=== PATIENT | female | born 1940 | race Hispanic/Latino ===

== ENCOUNTER 2016-09-27 14:33 | Inpatient (IN) | payer MEDICARE ==
[2016-09-27 14:33] VITALS: BMI 31.2
[2016-09-27] MEDS ORDERED: Morphine 2 mg/ml ISec IVP STA (15:23)
--- NOTE | 2016-09-27 15:40 | ED PDOC ---
Arrival/HPI - General Chief Complaint: Hip Pain Time Seen by Provider: 09/27/16 14:50 Historian: Patient - History of Present Illness Narrative History of Present Illness (Text): 09/27/16 15:40 76 year old female presents to the emergency department with left elbow and left hip pain after mechanical fall prior to arrival. Patient states she tripped over the corner of a rug and landed on her left elbow and hip. Denies head trauma or loss of consciousness. Denies symptoms prior to fall. Denies headache, shortness of breath, chest pain, or other symptoms. Time/Duration: Prior to Arrival Symptom Onset: Sudden Symptom Course: Unchanged Modifying Factors (Text): None Associated Symptoms (Text): None Past Medical History - Provider Review Nursing Documentation Reviewed: Yes - Cardiac Hx Hypertension: Yes Hx Pacemaker: No - Pulmonary Hx Respiratory Disorders: No - Neurological Hx Neurological Disorder: No Hx Paralysis: No - HEENT Hx HEENT Disorder: No - Renal Hx Renal Disorder: No - Endocrine/Metabolic Hx Endocrine Disorders: No - Hematological/Oncological Hx Blood Disorders: No Hx Blood Transfusions: No Hx Blood Transfusion Reaction: No - Integumentary Hx Dermatological Disorder: No - Musculoskeletal/Rheumatological Hx Musculoskeletal Disorders: No - Genitourinary/Gynecological Hx Genitourinary Disorders: No - Psychiatric Hx Anxiety: Yes Hx Emotional Abuse: No Hx Physical Abuse: No Hx Substance Use: No - Anesthesia Hx Anesthesia Reactions: No Hx Malignant Hyperthermia: No - Suicidal Assessment Feels Threatened In Home Enviroment: No Family/Social History - Physician Review Nursing Documentation Reviewed: Yes Family/Social History: Unknown Family HX Smoking Status: Never Smoked Hx Alcohol Use: No Hx Substance Use: No Allergies/Home Meds Allergies/Adverse Reactions: Allergies acetaminophen [From Percocet] Adverse Reaction (Intermediate, Verified 09/27/16 14:46) PALPITATIONS codeine Adverse Reaction (Intermediate, Verified 09/27/16 14:46) PALPITATIONS epinephrine Adverse Reaction (Intermediate, Verified 09/27/16 14:46) PALPITATIONS oxycodone HCl [From Percocet] Adverse Reaction (Intermediate, Verified 09/27/16 14:46) PALPITATIONS Home Medications: Home Meds Medication Instructions Recorded Confirmed Aspirin [Ecotrin] 81 mg PO DAILY 01/06/16 09/27/16 Furosemide [Lasix] 40 mg PO QAM 01/06/16 03/02/16 PARoxetine [Paxil] 10 mg PO QAM 01/06/16 09/27/16 amLODIPine [Norvasc] 10 mg PO BID 01/06/16 09/27/16 Rosuvastatin Calcium [Crestor] 5 mg PO DAILY 09/27/16 09/27/16 Review of Systems - Physician Review All systems were reviewed & negative as marked: Yes - Review of Systems Respiratory: absent: SOB Cardiovascular: absent: Chest Pain Musculoskeletal: Other (Left elbow and left hip pain) Neurological: absent: Dizziness Physical Exam Vital Signs Reviewed: Yes Vital Signs Temp Pulse Resp BP Pulse Ox 09/27/16 18:15 61 18 145/71 97 09/27/16 17:00 65 18 148/79 97 09/27/16 15:00 97.8 F 68 18 153/80 H 97 Temperature: Afebrile Blood Pressure: Normal Pulse: Regular Respiratory Rate: Normal Appearance: Positive for: Well-Appearing, Non-Toxic, Uncomfortable Pain Distress: Moderate Mental Status: Positive for: Alert and Oriented X 3 - Systems Exam Head: Present: Atraumatic, Normocephalic Pupils: Present: PERRL Extroacular Muscles: Present: EOMI Conjunctiva: Present: Normal Mouth: Present: Moist Mucous Membranes Neck: Present: Normal Range of Motion Respiratory/Chest: Present: Clear to Auscultation, Good Air Exchange. No: Respiratory Distress, Accessory Muscle Use Cardiovascular: Present: Regular Rate and Rhythm, Normal S1, S2. No: Murmurs Abdomen: Present: Normal Bowel Sounds. No: Tenderness, Distention, Peritoneal Signs Back: Present: Normal Inspection Upper Extremity: Present: Normal ROM, Other (Abrasion to the left elbow). No: Cyanosis, Edema, Tenderness Lower Extremity: Present: NORMAL PULSES, Capillary Refill < 2 s, Other (Point tenderness to lateral aspect of left hip. Left leg shortened and rotated. Good pulses. ). No: Edema Neurological: Present: GCS=15, CN II-XII Intact, Speech Normal Skin: Present: Warm, Dry, Normal Color. No: Rashes Psychiatric: Present: Alert, Oriented x 3, Normal Insight, Normal Concentration Medical Decision Making ED Course and Treatment: Impression: 76 year old female presents to the emergency department with left elbow and left hip pain after mechanical fall prior to arrival. Differential Diagnosis included but are not limited to: Fracture vs sprain Plan: -- XR left elbow, XR left hip -- Morphine -- Labs -- Reassess and disposition Progress Notes: 09/27/16 18:[address] Ascencio covering for Dr. Hwang, requesting Dr. Mckenzie for orthopedics. Will admit to Dr. Negron with Dr. Mckenzie for orthopedics. Dr. Stanley is covering for Dr. Mckenzie. Multiple calls were made and we were unable to reach Dr. Stanley. Spoke with Dr. Ascencio who is aware. - Lab Interpretations Lab Results: 09/27/16 16:00 09/27/16 16:00 Lab Results 09/27/16 17:20: Blood Type Confirm O POSITIVE 09/27/16 16:00: WBC 13.6 H, RBC 4.88, Hgb 14.8, Hct 43.5, MCV 89.1, MCH 30.3, MCHC 34.0, RDW 13.4, Plt Count 270, MPV 9.9, Gran % 81.7 H, Lymph % (Auto) 12.3 L, Harris % (Auto) 5.1, Eos % (Auto) 0.5 L, Baso % (Auto) 0.4, Gran # 11.12 H, Lymph # 1.7, Harris # 0.7 H, Eos # 0.1, Baso # 0.06, PT 11.4, INR 1.06, APTT 25.0 , Sodium 139, Potassium 3.9, Chloride 102, Carbon Dioxide 26, Anion Gap 15, BUN 17, Creatinine 0.7, Est GFR ( Amer) > 60, Est GFR (Non-Af Amer) > 60, Random Glucose 125 H, Calcium 10.1, Total Bilirubin 0.7, AST 37, ALT 38, Alkaline Phosphatase 98, Total Protein 6.8, Albumin 4.1, Globulin 2.7, Albumin/ Globulin Ratio 1.5, Blood Type O POSITIVE, Antibody Screen Negative, BBK History Checked No verified bt - RAD Interpretation Radiology Orders: 09/27/16 15:23 ELBOW LEFT 3 VIEWS ROUTINE [RAD] Stat HIP MIN 2V W/ PELVIS LT [RAD] Stat 09/27/16 18:01 CHEST PORTABLE [RAD] Stat - Medication Orders Current Medication Orders: Amlodipine Besylate (Norvasc) 10 mg PO BID [facility] Last Admin: 09/27/16 19:30 Dose: 10 MG MAR Pulse and Blood Pressure Document 09/27/16 19:30 SD (Rec: 09/27/16 19:30 SD [id number]) Pulse Pulse Rate (60-90) 75 Blood Pressure Blood Pressure (100/60-150/90) 145/70 Heparin Sodium (Porcine) (Heparin) 5,000 units SC Q12 [facility] PRN Reason: Protocol Sodium Chloride (Sodium Chloride 0.45%) 1,000 mls @ 80 mls/hr IV .[id number] [facility] Last Admin: 09/27/16 19:29 Dose: 80 MLS/HR eMAR Start Stop Document 09/27/16 19:29 SD (Rec: 09/27/16 19:29 SD [id number]) Intravenous Solution Start Date 09/27/16 Start Time 19:29 Morphine Sulfate (Morphine) 2 mg IM Q4H PRN PRN Reason: Pain, moderate (4-7) Paroxetine HCl (Paxil) 10 mg PO DAILY [facility] Discontinued Medications Hydromorphone HCl (Dilaudid) 1 mg IVP STAT STA Stop: 09/27/16 17:27 Last Admin: 09/27/16 17:43 Dose: 1 MG IVP Administration Document 09/27/16 17:43 EQ (Rec: 09/27/16 17:43 EQ [facility] [id number]) Charges for Administration # of IVP Administrations 1 Morphine Sulfate (Morphine) 2 mg IVP STAT STA Stop: 09/27/16 15:24 Last Admin: 09/27/16 16:00 Dose: 2 MG MAR Pain Assessment Document 09/27/16 16:00 EQ (Rec: 09/27/16 16:18 EQ [facility] [id number]) Pain Reassessment Is this a pain reassessment? No Sleep Is patient sleeping during reassessment? No Presence of Pain Presence of Pain Yes Pain Scale Used Pain Scale Used Numeric Location Left, Right or Bilateral Left Pain Location Body Site Hip Description Description Constant Intensity of Pain at present 10 IVP Administration Document 09/27/16 16:00 EQ (Rec: 09/27/16 16:18 EQ [facility] [id number]) Charges for Administration # of IVP Administrations 1 Morphine Sulfate (Morphine) 4 mg IVP STAT STA Stop: 09/27/16 16:22 Last Admin: 09/27/16 16:39 Dose: 4 MG MAR Pain Assessment Document 09/27/16 16:39 EQ (Rec: 09/27/16 16:39 EQ [facility] [id number]) Pain Reassessment Is this a pain reassessment? Yes Sleep Is patient sleeping during reassessment? Yes Pain Scale Used Pain Scale Used Numeric Location Left, Right or Bilateral Left Pain Location Body Site Hip Description Description Constant Intensity of Pain at present 8 IVP Administration Document 09/27/16 16:39 EQ (Rec: 09/27/16 16:39 EQ [facility] [id number]) Charges for Administration # of IVP Administrations 1 Morphine Sulfate (Morphine) Confirm Administered Dose 4 mg .ROUTE .STK-MED ONE Stop: 09/27/16 16:24 Last Admin: 09/27/16 16:38 Dose: - Scribe Statement The provider has reviewed the documentation as recorded by the Bhavik Hathaway Provider Scribe Attestation: All medical record entries made by the Sonibedmundo were at my direction and personally dictated by me. I have reviewed the chart and agree that the record accurately reflects my personal performance of the history, physical exam, medical decision making, and the department course for this patient. I have also personally directed, reviewed, and agree with the discharge instructions and disposition. Disposition/Present on Arrival - Present on Arrival Any Indicators Present on Arrival: No History of DVT/PE: No History of Uncontrolled Diabetes: No Urinary Catheter: No History of Decub. Ulcer: No History Surgical Site Infection Following: None - Disposition Have Diagnosis and Disposition been Completed?: Yes Diagnosis: Fracture of left hip Disposition: HOSPITALIZED Disposition Time: 18:00 Patient Plan: Admission Condition: STABLE
[2016-09-27 16:08] LABS: ADD MANUAL DIFF? NO
[2016-09-27 16:14] LABS: BASO # 0.06 K/mm3 (0.0-2.0); BASO % 0.4 % (0.0-3.0); EOS # 0.1 (0.0-0.7); EOS % 0.5 % (1.5-5.0); GRAN # 11.12 (1.4-6.5); GRAN % 81.7 % (50.0-68.0); HEMATOCRIT 43.5 % (36.0-48.0); LYMPH # 1.7 (1.2-3.4); LYMPH % 12.3 % (22.0-35.0); MEAN CELL VOLUME 89.1 fL (80.0-105.0); MEAN CORPUSCULAR HEMOGLOBIN 30.3 pg (25.0-35.0); MEAN PLATELET VOLUME 9.9 fl (7.0-11.0); MONO # 0.7 (0.1-0.6); MONO % 5.1 % (1.0-6.0); PLATELET COUNT 270 10^3/uL (120.0-450.0); RED CELL DISTRIBUTION WIDTH 13.4 % (11.5-14.5); WHITE BLOOD COUNT 13.6 10^3/ul (4.5-11.0)
[2016-09-27] MEDS ORDERED: Morphine 4 mg/ml ISec IVP STA (16:21)
[2016-09-27] MEDS ORDERED: Morphine 4 mg/ml ISec ONE (16:23)
[2016-09-27 16:38] LABS: ALB/GLOB RATIO 1.5 (1.1-1.8); ALKALINE PHOSPHATASE 98 U/L (38-133); ALT/SGPT 38 U/L (7-56); AST/SGOT 37 U/L (15-39); BILIRUBIN,TOTAL 0.7 mg/dL (0.2-1.3); BLOOD UREA NITROGEN 17 mg/dL (7-21); CALCIUM 10.1 mg/dL (8.4-10.5); CARBON DIOXIDE 26 mmol/L (21-33); CHLORIDE 102 mmol/L (98-107); GFR AFRICAN-AMERICAN > 60; GLUCOSE,RANDOM 125 mg/dL (70-110); POTASSIUM 3.9 mmol/L (3.6-5.0); SODIUM 139 mmol/L (132-148); TOTAL PROTEIN 6.8 g/dL (5.8-8.3)
[2016-09-27 16:39] LABS: INR 1.06 (0.93-1.08)
--- NOTE | 2016-09-27 17:20 | RAD ---
Left hip with pelvis radiographs Comparison: None available Indication: Rule out fracture Findings: Comminuted left intratrochanteric fracture deformity. Soft tissue swelling. No evidence of radiopaque foreign body. No evidence of dislocation. Cease demineralization. Degenerative changes. Impression: Comminuted left intertrochanteric fracture deformity. Soft tissue swelling.
--- NOTE | 2016-09-27 17:22 | RAD ---
PROCEDURE: Radiographs of the left elbow. HISTORY: r/o fx COMPARISON: None available. FINDINGS: BONES: No acute displaced fracture. JOINTS: No dislocation. SOFT TISSUES: Unremarkable. No evidence of radiopaque foreign body. JOINT EFFUSION: No significant joint effusion. OTHER FINDINGS: None IMPRESSION: No acute displaced fracture, dislocation, or significant joint effusion identified. If high clinical index of suspicion for occult fracture persists recommend cross-sectional imaging for further evaluation. Otherwise if symptoms persist, or if there is continued clinical concern, x-ray follow-up in 7-10 days should be considered.
[2016-09-27] MEDS ORDERED: HYDROmorphone 1 mg/ml ISec IVP STA (17:26)
[2016-09-27] MEDS ORDERED: Morphine 2 mg/ml ISec IM PRN (19:17)
[2016-09-27] MEDS: Sodium Chloride 0.45% 1,000 ML IV SCH (19:29)
[2016-09-27] MEDS: HYDROmorphone 1 mg/ml ISec IVP PRN (21:51)
[2016-09-28] MEDS: HYDROmorphone 1 mg/ml ISec IVP PRN ×5 (00:43→21:24)
[2016-09-28] MEDS ORDERED: HYDROmorphone 1 mg/ml ISec IVP STA (05:04)
--- NOTE | 2016-09-28 05:04 | CP.PCM.PN ---
Subjective - Date & Time of Evaluation Date of Evaluation: 09/28/16 Time of Evaluation: 05:04 - Subjective Subjective: Nurse calls and tells that patient is in pain and needs pain medicine. Pain in left hip fracture. Came in with left hip fracture. Got 1 mg dilaudid IV at 3:43 AM. 2 mg morphine IM 4:30 PM. I evaluated patient at bedside. She has pain in left hip. This 76 year old white woman is admitted with left hip fracture. Has PMHof HTN, hypercholeserolemia, palpitation, right shoulder ORIF. Objective - Vital Signs/Intake and Output Vital Signs (last 24 hours): Temp Pulse Resp BP Pulse Ox 97.8 F 75 18 145/70 97 09/27/16 15:00 09/27/16 19:30 09/27/16 20:22 09/27/16 19:30 09/27/16 18:15 Intake and Output: 09/27/16 09/28/16 18:59 06:59 Output Total 500 Balance -500 - Medications Medications: Current Medications Amlodipine Besylate (Norvasc) 10 mg PO BID [facility] Last Admin: 09/27/16 19:30 Dose: 10 mg Heparin Sodium (Porcine) (Heparin) 5,000 units SC Q12 VERONICA PRN Reason: Protocol Last Admin: 09/27/16 21:51 Dose: 5,000 units Hydromorphone HCl (Dilaudid) 1 mg IVP Q3H PRN PRN Reason: Pain, severe (8-10) Last Admin: 09/28/16 03:43 Dose: 1 mg Sodium Chloride (Sodium Chloride 0.45%) 1,000 mls @ 80 mls/hr IV .[id number] [facility] Last Admin: 09/27/16 19:29 Dose: 80 mls/hr Morphine Sulfate (Morphine) 2 mg IM Q4H PRN PRN Reason: Pain, moderate (4-7) Paroxetine HCl (Paxil) 10 mg PO DAILY [facility] - Labs Labs: PT 11.4 Seconds (9.9-11.8) 09/27/16 16:00 INR 1.06 (0.93-1.08) 09/27/16 16:00 APTT 25.0 Seconds (23.7-30.8) 09/27/16 16:00 - Constitutional Appears: Well, No Acute Distress - Head Exam Head Exam: ATRAUMATIC, NORMAL INSPECTION, NORMOCEPHALIC - Eye Exam Eye Exam: Normal appearance - ENT Exam ENT Exam: Normal External Ear Exam - Neck Exam Neck Exam: Normal Inspection - Respiratory Exam Respiratory Exam: NORMAL BREATHING PATTERN - Cardiovascular Exam Cardiovascular Exam: absent: JVD - GI/Abdominal Exam GI & Abdominal Exam: absent: Distended - Rectal Exam Rectal Exam: Deferred - Extremities Exam Additional comments: Left leg short.Left hip tenderness + - Back Exam Back Exam: NORMAL INSPECTION - Neurological Exam Neurological Exam: Alert, Oriented x3 - Psychiatric Exam Psychiatric exam: Normal Affect, Normal Mood - Skin Skin Exam: Normal Color Assessment and Plan - Assessment and Plan (Free Text) Assessment: A/P: Left hip fracture. HTN. HLD. History right shoulder bursitis. Dilaudid 1 mg IV stat.
[2016-09-28] MEDS: Sodium Chloride 0.45% 1,000 ML IV SCH (08:00)
--- NOTE | 2016-09-28 09:19 | RAD ---
HISTORY: pre-op COMPARISON: No prior. FINDINGS: LUNGS: [id number] elevation of the right hemidiaphragm. No evidence of focal infiltrate or consolidation in the lungs. Linear opacity seen at the right lung base likely atelectasis. PLEURA: No significant pleural effusion identified, no pneumothorax apparent. CARDIOVASCULAR: Normal. OSSEOUS STRUCTURES: No significant abnormalities. VISUALIZED UPPER ABDOMEN: Normal. OTHER FINDINGS: None. IMPRESSION: [id number] elevation of the right hemidiaphragm. Right lung base atelectasis. Otherwise no evidence of acute pulmonary disease.
[2016-09-28] MEDS: Pantoprazole 40 mg EC Tab PO SCH (09:40)
--- NOTE | 2016-09-28 09:56 | CARD ---
APPROVED REPORT EKG Measurement Heart [id number] <Conclusion> Normal sinus rhythm Left axis deviation Left ventricular hypertrophy with repolarization abnormality Cannot rule out Septal infarct, age undetermined PRWP STTW changes c/w ischemia and /or strain pattern
[2016-09-28 10:22] LABS: URINE BILIRUBIN NEGATIVE (NEGATIVE); URINE BLOOD SMALL (NEGATIVE); URINE GLUCOSE (UA) NEGATIVE (NEGATIVE); URINE KETONE NEGATIVE (NEGATIVE); URINE LEUKOCYTE ESTERASE NEGATIVE Leu/uL (NEGATIVE); URINE PROTEIN TRACE mg/dL (<30 mg/dL); URINE UROBILINOGEN 0.2 E.U./dL (<1 E.U./dL)
[2016-09-28 10:35] LABS: URINE APPEARANCE SL CLOUDY (CLEAR); URINE COLOR LIGHT YELLOW (YELLOW)
[2016-09-28 11:07] LABS: URINE CALCIUM OXALATE CRYSTALS RARE /hpf; URINE EPITHELIAL CELLS 0 - 2 /hpf (0-5); URINE RBC 0 - 2 /hpf (0-2)
[2016-09-28 11:09] LABS: URINE BACTERIA TRACE (NEG)
--- NOTE | 2016-09-28 11:24 | CON ---
DATE: 09/28/2016 INPATIENT CONSULT REASON FOR CONSULTATION: Status post mechanical fall with left hip fracture. HISTORY OF PRESENT ILLNESS: This is a 76-year-old female who presented status post fall yesterday wi th complaints of left hip pain and inability to ambulate. The patient denies any loss of consciousne ss. The patient denies any other injuries. She denies any numbness or tingling going down her legs. She denies any back pain. PHYSICAL EXAMINATION: GENERAL: This is an elderly female in no apparent distress. She is awake, alert, and oriented x 3. EXTREMITIES: Evaluation of her left lower extremity shows that it is slightly internally rotated. S he has pain with passive range of motion of the left hip. Her thigh is soft and nontender. Her skin is intact. No ecchymosis appreciated. Evaluation of left knee shows no deformity. There is no eff usion. Her calf is soft and nontender. Neurovascularly, she is grossly intact distally. Evaluation of the right lower extremity again shows she has active range of motion of the hip and knee without any pain. Neurovascularly, she is intact. X-rays of the left hip show a left comminuted intertrochanteric fracture. IMPRESSION: Left hip intertrochanteric fracture. PLAN: We discussed the treatment options, and ultimate recommendations will be for open reduction an d internal fixation of the left hip. Right now, we are awaiting medical and cardiac clearance, and t entatively, we will plan on scheduling her for surgery tomorrow. Jason Mckenzie MD cc: [id number] TT: 09/28/2016 11:23:47 Confirmation # [id number] Dictation # [id number] cait
--- NOTE | 2016-09-28 11:55 | HP ---
CHIEF COMPLAINT AND HISTORY OF PRESENT ILLNESS: This is a 76-year-old female who is coming into the hospital and was found to have a left hip fracture. The patient said that she had a fall. She had t ripped over the corner of a rug and landed on her left elbow and hip. She denies any dizziness or pa lpitations. She had no loss of consciousness. She has no chest pain, shortness of breath, no nausea , no vomiting, no abdominal pain, no back pain, no dysuria or frequency, no nocturia, no weakness in the arms or legs. All other review of symptoms are within normal limits except as mentioned. She sa ys the pain initially was 10/10. It is better with her medications, but not as controlled as she wou ld like it to be. ALLERGIES: TO ACETAMINOPHEN, CODEINE, EPINEPHRINE, OXYCODONE. HOME MEDICATIONS: Ecotrin, Lasix, Paxil, Norvasc, Crestor. SOCIAL HISTORY: She never smoked. She denies alcohol or drug abuse. FAMILY HISTORY: Noncontributory. PAST MEDICAL HISTORY: Hypertension, dyslipidemia, anxiety. PHYSICAL EXAMINATION: VITAL SIGNS: Temperature is 98.9, pulse of 95, blood pressure is 145/70, respirations 18, O2 saturat ion is 97%. GENERAL: The patient lying in bed, flat, and in no apparent distress. HEAD AND NECK EXAM: Atraumatic, normocephalic. Conjunctivae are pink. Throat clear and mouth with moist mucosa. Oropharynx benign. EYES: Extraocular movements are intact. PERRLA. NECK: Supple. No JVD, thyromegaly, or adenopathy. No bruits. HEART: S1 and S2 regular rate and rhythm. No murmurs, rubs, or gallops. LUNGS: Clear to auscultation bilaterally. No wheezing rales or rhonchi appreciated. No retraction s on exam. ABDOMEN: Soft, nontender, nondistended. Bowel sounds are positive in all quadrants. No rebound. No hepatosplenomegaly. EXTREMITIES: Left leg, it is rotated internally, unable to do range of motion because of pain. Le ft elbow shows no acute displaced fracture, dislocation or significant joint effusion. No cyanosis, clubbing, or edema. NEUROLOGIC: No facial asymmetry, tongue is midline, no uvula deviation. Power is 5/5 in upper extr emity and 5/5 in lower extremity. Sensation is normal in upper extremity and lower extremity. PSYCHIATRIC: Awake, alert, oriented x 3. No anxiety or depression symptoms. Good insight. Julia l affect. GENITOURINARY: No CVA tenderness VASCULAR: 2+ pulses in carotid and pedal pulses. SKIN: No erythema or abnormal nodules noted. SPINE: Normal curvature. LYMPHADENOPATHY: No anterior cervical or posterior cervical adenopathy. No inguinal adenopathy. Chest x-ray done showed mild to moderate elevation of the right hemidiaphragm, right lung base atelec tasis. EKG shows heart rate of 80. It is left axis deviation. There are nonspecific ST changes. QTc is 46 3. ASSESSMENT: 1. Acute left intertrochanteric hip fracture, femoral fracture. 2. Hypertension. 3. Dyslipidemia. 4. Fall. PLAN: The patient is currently comfortable. She is going to be admitted to the hospital. She is on Dilaudid for pain. She is receiving heparin for deep venous thrombosis prophylaxis. She is on Lopr essor. The patient is on amlodipine for hypertension. She is on her Paxil for anxiety. She is on P rotonix. She has an echo that has been ordered. I will get Dr. Tomlinson for preoperative clearance. I will also get Dr. Mckenzie for evaluation and surgical intervention. I did speak with Dr. Xavier in about the case. The patient is going to be scheduled tomorrow for the OR. I left a message with Dr. Tomlinson and he confirmed that he will see the patient later today for preop. The patient has be en fairly independent, does not have any active cardiac issues and . I did speak to the patient 's sister at the bedside. I was able to give her an update on the patient's diagnosis and plan of ca re. The patient may benefit from acute rehabilitation. [facility] was discussed with the patient's fam rosmery and they are agreeable to going to [facility]. Subacute is also an option, but we will wait to see if [facility] is willing to accept this patient who is fairly independent. Parminder Negron MD cc: [id number] TT: 09/28/2016 11:54:34 en
--- NOTE | 2016-09-28 12:28 | CON ---
DATE: 09/28/2016 INDICATIONS: Mechanical fall, left hip fracture, preop evaluation, hypertension. HISTORY OF PRESENT ILLNESS: This is a 76-year-old woman known to us with a mechanical fall at home yesterday. She tripped over an area rug, landed on her left elbow and leg. She has been found to have a fracture of the left hip. Surgery is planned for tomorrow by Dr. Mckenzie. There was no syncope involved. She denies chest pain, shortness of breath, orthopnea, PND, dizziness , vertigo, palpitations, fever, chills, cough, sputum production, hemoptysis, abdominal pain, nausea, vomiting, diarrhea, constipation, melena. She does experience intermittent pedal edema. PAST MEDICAL HISTORY: Notable for hypertension. She has had cardiac evaluation in our office over the years including stress testing, but not recently. There is no history of rheumatic fever, myocardial infarction, angina , congestive heart failure, arrhythmia, stroke, TIA, diabetes or gout. MEDICATIONS AT THE TIME OF ADMISSION: Includes amlodipine, Benicar, Crestor, aspirin, Lasix, Paxil. ALLERGIES: SHE NOTES AN ALLERGY TO SEVERAL MEDICATIONS INCLUDING ACETAMINOPHEN , CODEINE, EPINEPHRINE, OXYCODONE. SOCIAL HISTORY: She lives at home. She does not smoke. She does not drink. She is ambulatory. FAMILY HISTORY: Noncontributory. REVIEW OF SYSTEMS: A 10-point review of systems is otherwise unremarkable except as noted above. PHYSICAL EXAMINATION: GENERAL: She is a well-developed woman in no acute distress, lying in bed on 5R in no acute distress. VITAL SIGNS: Unremarkable. Pulse is 75-95. She is afebrile. Blood pressure 150/83. Respirations 18-20. O2 sat 94% to 97% on nasal cannula and room air. HEENT: Reveals no neck vein distention, thyromegaly, or carotid bruits. Mucous membranes moist. Conjunctivae pink. Neck supple. LUNGS: Lung [place] clear throughout. HEART: Revealed normal first and second heart sounds. There is a soft systolic murmur along the left sternal border. ABDOMEN: Soft. Bowel sounds are present. No mass, organomegaly, tenderness, rebound, or guarding. EXTREMITIES: Reveals mild pedal edema. NEUROLOGIC: Awake, alert, oriented and intact. SKIN: Warm and dry. No rash or cellulitis. PSYCHIATRIC: Normal as to mood and affect. LABORATORY AND IMAGING: A hip and pelvis x-ray reveals comminuted left intertrochanteric fracture deformity with soft tissue swelling. The left elbow x-ray reveals no acute displaced fracture, dislocation or effusion. A chest x- ray revealed elevation of the right hemidiaphragm, otherwise unremarkable. An EKG demonstrates regular sinus rhythm, LVH, left axis deviation, possible anterior septal myocardial infarction, ST-T wave changes. No prior EKG for comparison. IMPRESSION: The patient is a 76-year-old woman with a history of hypertension and an abnormal ECG who suffered a mechanical fall and a fracture of her left hip. Surgery is planned for tomorrow. Her EKG is abnormal. I do not have an old EKG for comparison. I will get an echocardiogram. I will try to review her old records, find an old EKG. There is no chest pain or shortness of breath. She is getting intravenous fluids. We will continue amlodipine, Benicar. Metoprolol has been added. She is on subcutaneous heparin. She is getting pain meds. We will monitor intake and output. I will follow along with you. I will make additional recommendations based on her clinical course. At this time, I see no reason why she should not be able to proceed with elective left hip repair. She should be considered a mildly increased cardiac risk. Isaac Moore MD cc: [id number] TT: 09/28/2016 12:27:20 Confirmation # [id number] Dictation # [id number] sn GUSMAN
[2016-09-29] MEDS: HYDROmorphone 1 mg/ml ISec IVP PRN ×4 (01:33→21:59)
[2016-09-29 07:36] LABS: ADD MANUAL DIFF? NO
[2016-09-29 07:39] LABS: BASO # 0.08 K/mm3 (0.0-2.0); BASO % 0.7 % (0.0-3.0); EOS # 0.1 (0.0-0.7); EOS % 0.9 % (1.5-5.0); GRAN # 7.14 (1.4-6.5); GRAN % 61.4 % (50.0-68.0); HEMATOCRIT 36.3 % (36.0-48.0); LYMPH # 3.1 (1.2-3.4); LYMPH % 26.2 % (22.0-35.0); MEAN CELL VOLUME 90.1 fL (80.0-105.0); MEAN CORPUSCULAR HEMOGLOBIN 30.3 pg (25.0-35.0); MEAN CORPUSCULAR HGB CONC 33.6 g/dl (31.0-37.0); MEAN PLATELET VOLUME 9.8 fl (7.0-11.0); MONO # 1.3 (0.1-0.6); MONO % 10.8 % (1.0-6.0); PLATELET COUNT 216 10^3/uL (120.0-450.0); RED CELL DISTRIBUTION WIDTH 13.3 % (11.5-14.5); WHITE BLOOD COUNT 11.6 10^3/ul (4.5-11.0)
[2016-09-29] MEDS: Pantoprazole 40 mg EC Tab PO SCH (08:32)
[2016-09-29 08:48] LABS: ALB/GLOB RATIO 1.2 (1.1-1.8); ALKALINE PHOSPHATASE 71 U/L (38-133); ALT/SGPT 27 U/L (7-56); AST/SGOT 40 U/L (15-39); BILIRUBIN,TOTAL 0.8 mg/dL (0.2-1.3); BLOOD UREA NITROGEN 16 mg/dL (7-21); CALCIUM 8.7 mg/dL (8.4-10.5); CARBON DIOXIDE 29 mmol/L (21-33); CHLORIDE 104 mmol/L (98-107); GFR AFRICAN-AMERICAN > 60; GLUCOSE,RANDOM 106 mg/dL (70-110); POTASSIUM 3.9 mmol/L (3.6-5.0); SODIUM 139 mmol/L (132-148); TOTAL PROTEIN 5.9 g/dL (5.8-8.3)
--- NOTE | 2016-09-29 09:23 | CARD ---
APPROVED REPORT EXAM: Two-dimensional and M-mode echocardiogram with Doppler and color Doppler. Other Information Quality : GoodRhythm : INDICATION Pre-Op , abn ECG c/w ASMI/LVH 2D DIMENSIONS Left Atrium (2D)3.7 (1.6-4.0cm)IVSd1.3 (0.7-1.1cm) LVDd3.7 (3.9-5.9cm)PWd1.1 (0.7-1.1cm) LVDs2.5 (2.5-4.0cm)FS (%) 32.1 % LVEF (%)61.0 (>50%) M-Mode DIMENSIONS Aortic Root2.60 (2.2-3.7cm)Aortic Cusp Exc.1.20 (1.5-2.0cm) Aortic Valve AoV Peak Pukmrbkh932.0cm/s Mitral Valve MV E Qfysdsiy27.2cm/sMV A Eprjzhta321.0cm/sE/A ratio0.7 TDI E/Lateral E'0.0E/Medial E'0.0 Tricuspid Valve TR Peak Hwtypmnp222kk/sRAP [id number] Peak Gr.28mmHg [id number] LEFT VENTRICLE The left ventricle is normal size. There is normal left ventricular wall thickness. The left ventricular function is normal. The left ventricular ejection fraction is within the normal range. There is normal LV segmental wall motion. RIGHT VENTRICLE The right ventricle is normal size. ATRIA The left atrium size is normal. The right atrium size is normal. The interatrial septum is intact with no evidence for an atrial septal defect. AORTIC VALVE The aortic valve is mildly thickened but opens well. MITRAL VALVE The mitral valve is normal in structure. TRICUSPID VALVE The tricuspid valve is normal in structure. There is trace to mild tricuspid regurgitation. PULMONIC VALVE The pulmonic valve is not well visualized. GREAT VESSELS The aortic root is normal in size. PERICARDIAL EFFUSION There is no pericardial effusion. <Conclusion> The left ventricle is normal size. There is normal left ventricular wall thickness. The left ventricular function is normal.
--- NOTE | 2016-09-29 09:35 | CP.PCM.PN ---
Subjective - Date & Time of Evaluation Date of Evaluation: 09/29/16 Time of Evaluation: 08:00 - Subjective Subjective: Stable on 5R. No CP or SOB. V/S noted. T=100.8 PE: Lungs: clear Cor.: S1S2 Abd.: soft Ext.: no edema Neuro.: alert ECG: RSR, possible ASMI, LVH, STTW changes c/w ischemia. No change Echo: Nl LV function. See report. Objective - Vital Signs/Intake and Output Vital Signs (last 24 hours): Temp Pulse Resp BP Pulse Ox 100.8 F H 67 20 146/75 100 09/29/16 08:31 09/29/16 07:30 09/29/16 07:30 09/29/16 07:30 09/29/16 07:30 Intake and Output: 09/29/16 09/29/16 06:59 18:59 Intake Total 420 1920 Output Total 1200 Balance -780 1920 - Medications Medications: Current Medications Acetaminophen (Tylenol 325mg Tab) 650 mg PO Q4H PRN PRN Reason: Fever >100.4 F Last Admin: 09/29/16 08:31 Dose: 650 mg Docusate Sodium (Colace) 100 mg PO BID [facility] Last Admin: 09/28/16 17:15 Dose: 100 mg Heparin Sodium (Porcine) (Heparin) 5,000 units SC Q12 [facility] PRN Reason: Protocol Last Admin: 09/28/16 22:30 Dose: 5,000 units Home Med (Home Med) 1 unit PO BID [facility] Hydromorphone HCl (Dilaudid) 1 mg IVP Q3H PRN PRN Reason: Pain, severe (8-10) Last Admin: 09/29/16 05:25 Dose: 1 mg Ceftriaxone Sodium (Rocephin 1 Gram Ivpb) 100 mls @ 100 mls/hr IVPB DAILY [facility] PRN Reason: Protocol Morphine Sulfate (Morphine) 2 mg IM Q4H PRN PRN Reason: Pain, moderate (4-7) Pantoprazole Sodium (Protonix Ec Tab) 40 mg PO ACB [facility] Last Admin: 09/29/16 08:32 Dose: 40 mg Paroxetine HCl (Paxil) 10 mg PO DAILY [facility] Last Admin: 09/28/16 09:40 Dose: 10 mg - Labs Labs: 09/29/16 07:30 09/29/16 07:30 PT 11.4 Seconds (9.9-11.8) 09/27/16 16:00 INR 1.06 (0.93-1.08) 09/27/16 16:00 APTT 25.0 Seconds (23.7-30.8) 09/27/16 16:00 Assessment and Plan - Assessment and Plan (Free Text) Plan: Assessment: Mechanical fall with left hip fx. Pre-op left hip surgery Abn. ECG: possible ASMI but Nl LV fx. on echo>No [place] HBP HLD Plan: OK for left hip surgery later today. Mild increased cardiac risk.
[2016-09-29] MEDS: BENICAR PO SCH (09:37)
[2016-09-29] MEDS ORDERED: cefTRIAXone 1 gm 100 ML IVPB SCH (10:00)
--- NOTE | 2016-09-29 11:11 | PN ---
DATE: 09/29/2016 SUBJECTIVE: The patient has no complaints of any chest pain, no shortness of breath. She says she i s comfortable with the pain medication she is on. PHYSICAL EXAMINATION: VITAL SIGNS: Temperature is 100.1, pulse is 60, blood pressure 163/79, respirations 20. GENERAL: The patient comfortable, in no acute distress. HEENT: Anicteric sclerae. Moist mucosa. NECK: No JVD or adenopathy. CARDIAC: S1/S2. No murmurs. No rubs. Regular. RESPIRATORY: Clear to auscultation bilaterally. No wheezes, rales, or rhonchi. Good air entry. ABDOMEN: Bowel sounds are positive, soft, nontender, and nondistended. EXTREMITIES: No edema. Has 1+ pulses. LABS: White count of 13.6, hemoglobin is 14.8. ASSESSMENT: 1. Acute left ____trochanteric hip fracture. 2. Hypertension. 3. Dyslipidemia. 4. Fall. PLAN: The patient is currently comfortable. She is on Colace for constipation. She is receiving Di laudid for pain. She is on heparin for DVT prophylaxis. She is receiving morphine for pain as well. The patient is on her Paxil; this will be continued. She is going to be continued on her home medi cations with Benicar 40 mg b.i.d. She has an echo that has been ordered. She is scheduled for the O R today. Waiting Dr. Moore to preop the patient and optimize for surgery. Parminder Negron MD cc: [id number] TT: 09/29/2016 10:12:57 Confirmation # [id number] Dictation # [id number] mn 09/29/2016 10:11:01
[2016-09-29] MEDS ORDERED: Bupivacaine 0.5% Inj(30mL) ONE (14:14)
[2016-09-29] MEDS ORDERED: Morphine 2 mg/ml ISec IVP PRN (14:24)
[2016-09-29] MEDS ORDERED: Lactated Ringer's 1,000 ML IV SCH (14:30)
[2016-09-29] MEDS ORDERED: Propofol 10 mg/ml Inj (20 ML) ONE (15:06)
[2016-09-29] MEDS ORDERED: Midazolam 2 MG/2 ML VIAL ONE (15:07)
[2016-09-29] MEDS ORDERED: Rocuronium 10 mg/ml (5 ml) ONE (15:08)
[2016-09-29] MEDS ORDERED: Vancomycin 1gm in NS 250ml 250 ML IVPB SCH (17:00)
--- NOTE | 2016-09-29 18:00 | CARD ---
APPROVED REPORT EKG Measurement Heart [id number] ID [id number] <Conclusion> Normal sinus rhythm Left axis deviation Left ventricular hypertrophy with repolarization abnormality Cannot rule out Septal infarct, age undetermined Abnormal ECG
--- NOTE | 2016-09-29 19:00 | RAD ---
HISTORY: FEVER COMPARISON: 09/27/2016 FINDINGS: LUNGS: There is interval development of platelike opacity in the right lung base. The left lung is clear. PLEURA: No significant pleural effusion identified, no pneumothorax apparent. CARDIOVASCULAR: Normal. OSSEOUS STRUCTURES: There is S-shaped scoliosis in the thoracolumbar spine. VISUALIZED UPPER ABDOMEN: Normal. OTHER FINDINGS: There is chronic elevation of the right hemidiaphragm. IMPRESSION: Interval development of discoid atelectasis in the right lung base. Superimposed pneumonia cannot be excluded. Follow-up is advised.
[2016-09-29] MEDS: Albuterol-Ipratrop 3 mg / 0.5 (3 ml) UD IH SCH (20:17)
[2016-09-29] MEDS: Cefepime 1gm in NS 100ml 100 ML IVPB SCH (21:48)
[2016-09-30] MEDS: HYDROmorphone 1 mg/ml ISec IVP PRN ×4 (01:34→21:51)
[2016-09-30] MEDS: Albuterol-Ipratrop 3 mg / 0.5 (3 ml) UD IH SCH ×2 (07:25→20:34)
[2016-09-30 07:52] LABS: ADD MANUAL DIFF? NO
[2016-09-30 07:55] LABS: BASO # 0.04 K/mm3 (0.0-2.0); BASO % 0.3 % (0.0-3.0); EOS # 0.1 (0.0-0.7); EOS % 0.7 % (1.5-5.0); GRAN % 73.2 % (50.0-68.0); HEMATOCRIT 38.7 % (36.0-48.0); LYMPH # 2.1 (1.2-3.4); LYMPH % 17.9 % (22.0-35.0); MEAN CORPUSCULAR HEMOGLOBIN 30.1 pg (25.0-35.0); MEAN CORPUSCULAR HGB CONC 33.9 g/dl (31.0-37.0); MEAN PLATELET VOLUME 9.8 fl (7.0-11.0); MONO # 0.9 (0.1-0.6); MONO % 7.9 % (1.0-6.0); PLATELET COUNT 212 10^3/uL (120.0-450.0); RED CELL DISTRIBUTION WIDTH 13.1 % (11.5-14.5); WHITE BLOOD COUNT 11.8 10^3/ul (4.5-11.0)
[2016-09-30 08:25] VITALS: RESP 20
[2016-09-30] MEDS ORDERED: Bupivacaine 0.5% Inj(30mL) ONE (08:40)
[2016-09-30] MEDS: Pantoprazole 40 mg EC Tab PO SCH (08:40)
[2016-09-30] MEDS ORDERED: cefTRIAXone (Rocephin) 1 gm Inj ONE (08:40)
--- NOTE | 2016-09-30 08:42 | PN ---
DATE: 09/30/2016 SUBJECTIVE: The patient says she does have pain in the left hip at times, but the pain is controlled with pain medication. She has no complaints of any headaches or dizziness. PHYSICAL EXAMINATION: VITAL SIGNS: Temperature is 98.2, pulse of 80, blood pressure 161/74, respirations 18. GENERAL: The patient comfortable, in no acute distress. HEENT: Anicteric sclerae. Moist mucosa. NECK: No JVD or adenopathy. CARDIAC: S1/S2. No murmurs. No rubs. Regular. RESPIRATORY: Clear to auscultation bilaterally. No wheezes, rales, or rhonchi. Good air entry. ABDOMEN: Bowel sounds are positive, soft, nontender, and nondistended. EXTREMITIES: No edema. Has 1+ pulses. LABORATORY DATA: White count 11.6, hemoglobin is 12.2, creatinine 0.7. A chest x-ray done shows development of atelectasis of right lung base, superimposed pneumonia cannot be ruled out. Echo showed LV is normal size. There is normal left ventricle wall thickness. ASSESSMENT: 1. Hospital-acquired pneumonia. 2. Hypoxia, improved. 3. Hypertension 4. Acute left intertrochanteric hip fracture. 5. Dyslipidemia. 6. Fall. PLAN: The patient was to go to the OR yesterday, but had hypoxia secondary to her hospital-acquired pneumonia. The patient has a better oxygenation today. She has been 94%. The patient is going to b e on Dilaudid for pain. She is on cefepime for antibiotics. She is receiving Norvasc for hypertensi on. She is on Paxil. The patient has been started on vancomycin and cefepime for the infection. Pr ocalcitonin level has been ordered. The patient's urine culture is negative. Waiting for from infectious disease to evaluate the patient. I did speak to Dr. Mckenzie yesterday regarding the case. I will see the patient be cleared to go to the OR. Parminder Negron MD cc: [id number] TT: 09/30/2016 08:41:56 Confirmation # [id number] Dictation # [id number] jn
[2016-09-30] MEDS ORDERED: Midazolam 2 MG/2 ML VIAL ONE (09:35)
[2016-09-30] MEDS ORDERED: Propofol 10 mg/ml Inj (20 ML) ONE (09:35)
[2016-09-30] MEDS ORDERED: Phenylephrine 10 mg/ml Inj ONE (09:49)
--- NOTE | 2016-09-30 09:50 | CON ---
DATE: 09/30/2016 REASON FOR PULMONARY CONSULTATION: Oxygen desaturation. REFERRING PHYSICIAN: Dr. Parminder Negron The patient is a 76-year-old female with past medical history significant for hypertension, hyperlipidemia, chronic elevation of the right hemidiaphragm (was worked up in [facility] many years ago), who presented -- originally on 2016 -- after a fall at home. Apparently, the patient was walking to the dining room, tripped and fell, injuring her left hip. She then presented to the Emergency Room for additional evaluation. In the Emergency Room, the patient was noted to have a left hip fracture. She was thus admitted for additional evaluation. The patient denies shortness of breath at rest, dyspnea on exertion, cough, or sputum production. The patient also denies chest pain, coughing up of blood or chest pain -- made worse with deep respirations. The patient has had low-grade temperatures over the past day. No history of chills or infectious exposure. No history of night sweats, weight loss or appetite change prior to the above events. No history of syncope or diaphoresis. No history of recent travel. REVIEW OF SYSTEMS: No history of nausea, vomiting or diarrhea. No acute urinary symptoms. No new neurologic complaints. Rest of the review of systems is negative. ALLERGIES: PERCOCET, CODEINE, EPINEPHRINE. SOCIAL HISTORY: Negative for tobacco, negative for alcohol. FAMILY HISTORY: No inheritable diseases. HOME MEDICATIONS: Include Crestor, Ecotrin, Norvasc, Paxil, Lasix. PHYSICAL EXAMINATION: GENERAL: The patient appears comfortable at rest. She is not short of breath. VITAL SIGNS: Temperature is 98.2, pulse 84, respirations 18, blood pressure 161 /74. Oxygen saturation on nasal cannula is 94%-100%. HEENT: Normocephalic, atraumatic. No JVD. CARDIOVASCULAR: Positive S1, S2. No S3. LUNGS: Decreased breath sounds at the bases. Otherwise, clear. EXTREMITIES: There is no significant edema in the lower extremities. Calves are nontender to palpation. There is no peripheral cyanosis. The left leg is in traction. GASTROINTESTINAL: Abdomen is soft, nontender, nondistended. Bowel sounds are positive. SKIN: No acute rash. NEUROLOGIC: Limited at the present time. PERTINENT LABORATORY DATA: Chest x-ray was done yesterday and reviewed. There is chronic elevation of the right hemidiaphragm seen. There is also minimal linear atelectasis versus artifact noted at the right base. CBC: White count 11.6, hemoglobin 12.2, hematocrit 36.3, platelets of 216. Complete metabolic profile: AST 40. Rest of the metabolic profile is within normal limits. IMPRESSION: 1. Left hip fracture. 2. Status post fall at home. 3. Mild oxygen desaturation. 4. Minimal atelectasis -- right base. 5. Low-grade temperatures. PLAN: The patient presented to [facility] -- originally on 2016 -- after falling at home. Apparently, she was walking to the dining room, tripped and fell. She then presented to the Emergency Room for additional evaluation. In the Emergency Room, the patient was found to have a left hip fracture. She was thus admitted for additional evaluation. Again, I did review the vital signs at length. On 09/28/2016, at approximately 3 p.m., the patient's room air pulse oximetry was 91%. The pulse oximetry now ranges from 94%-100% on 2 liters nasal cannula. I did review the x-ray as above. There is chronic elevation of the right hemidiaphragm (worked up many years ago in [facility]). There is also minimal linear atelectasis versus artifact noted at the right base. I did discuss the chest x-ray findings with the patient at length. The patient is strongly advised to use her incentive spirometer as much as possible. She fully agrees. On physical exam, there is no significant bronchospasm noted. The patient is currently on DuoNeb treatments. The patient is also on antibiotic therapy -- as per infectious disease. Procalcitonin is ordered. Additional evaluation and treatment will be as per orthopedics (Dr. Mckenzie)--the patient is for surgery in the near future. I would also like to repeat a chest x-ray in a few days -- for comparison. Additional pulmonary intervention will be based on the above results, as well as the clinical status of the patient. I will discuss the above with Dr. Negron, and follow the patient closely with you Thank you very much for this pulmonary consultation. Christiano Candelario MD cc: [id number] TT: 09/30/2016 09:50:08 Confirmation # [id number] Dictation # [id number] en MTDD
[2016-09-30] MEDS ORDERED: Sevoflurane - Inhalation Anesthetic Liq (250 ml) ONE (10:01)
[2016-09-30] MEDS: Cefepime 1gm in NS 100ml 100 ML IVPB SCH (10:06)
[2016-09-30] MEDS ORDERED: HYDROmorphone 0.5 mg/0.5 ml ISec IVP PRN (11:20)
[2016-09-30] MEDS ORDERED: Labetalol 5 mg/ml Inj 20ML IVP PRN (11:23)
[2016-09-30] MEDS ORDERED: Lactated Ringer's 1,000 ML IV SCH (11:30)
[2016-09-30] MEDS ORDERED: Labetalol 5 mg/ml Inj 20ML ONE (11:55)
--- NOTE | 2016-09-30 11:56 | OP ---
PROCEDURE DATE: 09/30/2016 PREOPERATIVE DIAGNOSIS: Left hip intertrochanteric fracture. POSTOPERATIVE DIAGNOSIS: Left hip intertrochanteric fracture. PROCEDURE: Open reduction and internal fixation of left hip fracture with intramedullary nail. SURGEON: Jason Mckenzie MD. ANESTHESIA: General. COMPLICATIONS: None. ESTIMATED BLOOD LOSS: 50 mL. IMPLANT: [employer] Affixus trochanteric entry nail. INDICATIONS FOR PROCEDURE: This is a 76-year-old female who presented status post fall with left hip pain and inability to ambulate. Clinical and radiographic examination was consistent with a left hi p intertrochanteric fracture. Recommendations were for open reduction and internal fixation of the l eft hip, once the patient was medically optimized. The risks, benefits, and alternatives of procedur e were discussed with the patient, and informed consent was obtained. OPERATIVE PROCEDURE: After surgical site was found and verified in preoperative holding area, the pa tient was taken to the operating room and placed supine on the operating room table. After administr ation of general anesthesia, the patient received IV Rocephin. The patient's left lower extremity wa s positioned on the fracture table in a traction boot. Right lower extremity was gently flexed away from the operative field, and care was taken to make sure all bony prominences and nerves were well-p added and protected. At this point, using the C-arm imaging intensifier, a provisional closed reduct ion of the fracture was performed, and this was checked using the image intensifier on both the AP an d lateral planes. At this point, the left lower extremity was then prepped and draped in usual steri le fashion. Using the C-arm, the bony landmarks were identified about the left hip, and an approximately 3 cm inc ision was made proximal to the tip of the greater trochanter. Soft tissues were dissected bluntly do wn to the tip of the trochanter, and the guidewire for our nail was placed on the tip of the trochant er. The position of the guide pin was checked using the image intensifier. Satisfied, the guide pin was then inserted into the proximal aspect of the femur. Satisfied, the step drill was then used to drill the entry hole for our nail, and the guide pin was removed and exchanged for a smooth-tipped g uidewire. This was again confirmed using the C-arm. At this point, the trochanteric nail was then i nserted over the guidewire and recessed to the appropriate depth. Position of the nail, as well as o ur fracture reduction was checked using the image intensifier. Satisfied, the guidewire was removed, and through the outrigger jig, and through a small incision on the lateral aspect of the proximal th igh, the sleeves for our hip screw were then placed on the lateral cortex of the proximal femur. The guidepin for our hip screw was then inserted in the roughly center-center position of the femoral he ad. This was confirmed using the C-arm. At this point, the length of our hip screw was measured, an d the hole for our hip screw was then drilled to the appropriate depth. The appropriate length screw was then inserted over the guide pin, and our fracture reduction, as well as the position of the scr ew was checked. Satisfied, the screw was then locked statically by screwing down on the setscrew on the proximal aspect of the nail. Finally, the nail was then locked statically through the outrigger jig through a small incision in the lateral thigh, and the appropriate length screw was inserted. At this point, the outrigger jig was removed, and final x-rays were taken confirming good reduction, as well as good position of the hardware. All the wounds were then irrigated and closed in a layered fashion. A sterile dressing was applied. The patient was transferred to a stretcher, awakened, and taken to recovery room in stable condition. Jason Mckenzie MD cc: [id number] TT: 09/30/2016 11:55:38 jn
[2016-09-30] MEDS ORDERED: HYDROmorphone 0.5 mg/0.5 ml ISec ONE ×2 (11:58→12:16)
[2016-09-30] MEDS ORDERED: HYDROmorphone 0.5 mg/0.5 ml ISec IVP ONE ×2 (11:58→12:16)
[2016-09-30] MEDS ORDERED: Labetalol 5 mg/ml Inj 20ML IV ONE (11:59)
--- NOTE | 2016-09-30 15:04 | RAD ---
PROCEDURE: Radiographs of the pelvis. HISTORY: post op left orif COMPARISON: 09/27/2016 FINDINGS: BONES: The prior left intertrochanteric fracture is transfixed with orthopedic hardware normally positioned JOINTS: Sacroiliac Joints: Unremarkable. Pubic Symphysis: Unremarkable. OTHER FINDINGS: None. IMPRESSION: Status post left intertrochanteric fracture fixation
--- NOTE | 2016-09-30 16:48 | CP.PCM.CON ---
History of Present Illness - History of Present Illness History of Present Illness: 76 year old female with PMH of HTN, anxiety disorder, obesity with BMI 31 had a mechanical fall at home and sustained a left hip fracture, without head trauma or losing consciousness. The patient underwent ORIF today. She developed low grade fevers last night as well as leukocytosis and Infectious Diseases consult is requested to further evaluate and manage. Currently the patient is afebrile. She denies chills, no nausea or vomiting, no chest pain, no SOB, no cough or rhinorrhea, no sore throat, no body aches, no headache or dizziness, no abdominal pain, no leg pain, no diarrhea, no dysuria, no hematuria, no vaginal discharge, no blurring of vision. Review of Systems - Review of Systems All systems: reviewed and no additional remarkable complaints except (as per HPI ) Past Patient History - Past Medical History & Family History Past Medical History?: Yes Past Family History: Reviewed and not pertinent - Past Social History Smoking Status: Never Smoked Alcohol: None Drugs: Denies Home Situation {Lives}: With Family - CARDIAC Hx Hypertension: Yes Hx Pacemaker: No - PULMONARY Hx Respiratory Disorders: No - NEUROLOGICAL Hx Neurological Disorder: No Hx Paralysis: No - HEENT Hx HEENT Problems: No - RENAL Hx Chronic Kidney Disease: No - ENDOCRINE/METABOLIC Hx Endocrine Disorders: No - HEMATOLOGICAL/ONCOLOGICAL Hx Blood Transfusions: No Hx Blood Transfusion Reaction: No - INTEGUMENTARY Hx Dermatological Problems: No - MUSCULOSKELETAL/RHEUMATOLOGICAL Hx Musculoskeletal Disorders: No - GENITOURINARY/GYNECOLOGICAL Hx Genitourinary Disorders: No - PSYCHIATRIC Hx Anxiety: Yes Hx Emotional Abuse: No Hx Physical Abuse: No Hx Substance Use: No - SURGICAL HISTORY Hx Surgeries: Yes - ANESTHESIA Hx Anesthesia Reactions: No Hx Malignant Hyperthermia: No Meds Allergies/Adverse Reactions: Allergies Allergy/AdvReac Type Severity Reaction Status Date / Time acetaminophen [From Percocet] AdvReac Intermediate PALPITATION Verified 14:46 S codeine AdvReac Intermediate PALPITATION Verified 09/27/16 14:46 S epinephrine AdvReac Intermediate PALPITATION Verified 09/27/16 14:46 S oxycodone HCl [From Percocet] AdvReac Intermediate PALPITATION Verified 14:46 S - Medications Medications: Current Medications Acetaminophen (Tylenol 325mg Tab) 650 mg PO Q4H PRN PRN Reason: Fever >100.4 F Last Admin: 09/29/16 08:31 Dose: 650 mg Amlodipine Besylate (Norvasc) 10 mg PO DAILY [facility] Last Admin: 09/29/16 09:38 Dose: Not Given Docusate Sodium (Colace) 100 mg PO BID [facility] Last Admin: 09/29/16 10:23 Dose: 100 mg Heparin Sodium (Porcine) (Heparin) 5,000 units SC Q12 [facility] PRN Reason: Protocol Last Admin: 09/28/16 22:30 Dose: 5,000 units Home Med (Home Med) 1 unit PO BID [facility] Last Admin: 09/29/16 09:37 Dose: Not Given Hydromorphone HCl (Dilaudid) 1 mg IVP Q3H PRN PRN Reason: Pain, severe (8-10) Last Admin: 09/29/16 05:25 Dose: 1 mg Ceftriaxone Sodium (Rocephin 1 Gram Ivpb) 100 mls @ 100 mls/hr IVPB DAILY [facility] PRN Reason: Protocol Last Admin: 09/29/16 10:23 Dose: 100 mls/hr Morphine Sulfate (Morphine) 2 mg IM Q4H PRN PRN Reason: Pain, moderate (4-7) Pantoprazole Sodium (Protonix Ec Tab) 40 mg PO ACB [facility] Last Admin: 09/29/16 08:32 Dose: 40 mg Paroxetine HCl (Paxil) 10 mg PO DAILY [facility] Last Admin: 09/29/16 10:23 Dose: 10 mg Physical Exam - Constitutional Appears: Non-toxic, No Acute Distress - Head Exam Head Exam: NORMAL INSPECTION - ENT Exam ENT Exam: Mucous Membranes Moist - Neck Exam Neck exam: Negative for: Lymphadenopathy, Meningismus - Respiratory Exam Respiratory Exam: Clear to Auscultation Bilateral - Cardiovascular Exam Cardiovascular Exam: +S1, +S2 - GI/Abdominal Exam GI & Abdominal Exam: Soft. absent: Tenderness - Extremities Exam Additional comments: left leg with immobilizer in place Results - Vital Signs Recent Vital Signs: Last Vital Signs Temp 98.2 F 09/29/16 14:40 Pulse 84 09/29/16 14:40 Resp 18 09/29/16 14:40 BP 161/74 H 09/29/16 14:40 Pulse Ox 94 L 09/29/16 14:40 - Labs Result Diagrams: 09/30/16 07:30 09/29/16 07:30 Labs: Laboratory Results - last 24 hr 09/29/16 07:30 WBC 11.6 H RBC 4.03 Hgb 12.2 Hct 36.3 MCV 90.1 MCH 30.3 MCHC 33.6 RDW 13.3 Plt Count 216 MPV 9.8 Gran % 61.4 Lymph % (Auto) 26.2 [place] % (Auto) 10.8 H Eos % (Auto) 0.9 L Baso % (Auto) 0.7 Gran # 7.14 H Lymph # 3.1 [place] # 1.3 H Eos # 0.1 Baso # 0.08 Sodium 139 Potassium 3.9 Chloride 104 Carbon Dioxide 29 Anion Gap 10 BUN 16 Creatinine 0.7 Est GFR ( Amer) > 60 Est GFR (Non-Af Amer) > 60 Random Glucose 106 Calcium 8.7 Total Bilirubin 0.8 AST 40 H ALT 27 Alkaline Phosphatase 71 Total Protein 5.9 Albumin 3.3 Globulin 2.7 Albumin/Globulin Ratio 1.2 Assessment & Plan - Assessment and Plan (Free Text) Plan: Assessment Systemic Inflammatory Response Syndrome (fever, leukocytosis), consider secondary to acute stressful event (hip fracture) as well as atelectasis in the lungs; so far no evidence of sepsis Left hip fracture S/P ORIF today HTN anxiety disorder obesity with BMI 31 Plan The patient was started on Vancomycin and Cefepime; blood and urine cx are negative; CXR only showed atelectasis, PCT is <0.05 - will observe off antibiotics and trend WBC count Will follow clinically
[2016-09-30] MEDS: BENICAR PO SCH (19:04)
[2016-10-01] MEDS: HYDROmorphone 1 mg/ml ISec IVP PRN ×2 (05:15→09:48)
[2016-10-01] MEDS: Albuterol-Ipratrop 3 mg / 0.5 (3 ml) UD IH SCH (07:39)
[2016-10-01 08:00] LABS: ADD MANUAL DIFF? NO
[2016-10-01 08:11] LABS: BASO # 0.04 K/mm3 (0.0-2.0); BASO % 0.3 % (0.0-3.0); EOS % 0.3 % (1.5-5.0); GRAN # 9.38 (1.4-6.5); GRAN % 74.3 % (50.0-68.0); HEMATOCRIT 36.6 % (36.0-48.0); LYMPH # 1.9 (1.2-3.4); MEAN CELL VOLUME 88.8 fL (80.0-105.0); MEAN CORPUSCULAR HEMOGLOBIN 30.1 pg (25.0-35.0); MEAN CORPUSCULAR HGB CONC 33.9 g/dl (31.0-37.0); MEAN PLATELET VOLUME 9.8 fl (7.0-11.0); MONO # 1.3 (0.1-0.6); MONO % 10.1 % (1.0-6.0); PLATELET COUNT 251 10^3/uL (120.0-450.0); RED CELL DISTRIBUTION WIDTH 13.2 % (11.5-14.5); WHITE BLOOD COUNT 12.6 10^3/ul (4.5-11.0)
--- NOTE | 2016-10-01 09:08 | PN ---
DATE: 10/01/2016 DATE: 10/01/2016 SUBJECTIVE: The patient has no complaints of any chest pain, no shortness of breath, no headaches. She had her hip surgery done yesterday. She says she does have pain, but the pain medications are he lping her. PHYSICAL EXAMINATION: VITAL SIGNS: Temperature is 97.6. Pulse is 78. Blood pressure 160/70, respirations 20. GENERAL: The patient is comfortable, in no acute distress. HEENT: Anicteric sclerae. Moist mucosa. NECK: No JVD or adenopathy. CARDIAC: S1/S2. No murmurs. No rubs. Regular. RESPIRATORY: Clear to auscultation bilaterally. No wheezes, rales, or rhonchi. Good air entry. ABDOMEN: Bowel sounds are positive, soft, nontender, and nondistended. EXTREMITIES: No edema. Has 1+ pulses. LABORATORY DATA: Last hemoglobin was 13.1 yesterday. Pelvic x-ray done shows status post left intertrochanteric fracture fixation. ASSESSMENT: 1. Hospital-acquired pneumonia. 2. Hypoxia, improved. 3. Hypertension. 4. ____ left intertrochanteric hip fracture, status post open reduction and internal fixation. 5. Fall. PLAN: The patient is currently on Colace. She is going to continue with Dilaudid for pain. She is on heparin for DVT prophylaxis. She is on amlodipine for hypertension. The patient is on Paxil. Chris wyatt had blood cultures that showed no growth and urine cultures that have shown no growth as well. She is being followed by Dr. Mars from infectious disease. She is currently off antibiotics. We will await clearance to be able to send to a subacute rehab facility. We will advance her diet to a regul ar diet. Parminder Negron MD cc: [id number] TT: 10/01/2016 09:08:01 Confirmation # [id number] Dictation # [id number] cait
[2016-10-01 09:25] VITALS: O2SAT 99
--- NOTE | 2016-10-01 09:43 | PN ---
DATE: 10/01/2016 SUBJECTIVE: The patient appears very comfortable at rest. She is not short of breath. PHYSICAL EXAMINATION: VITAL SIGNS: Temperature is 97.6, pulse 94, respirations 18, blood pressure 180 /80. Oxygen saturation on room air-- 93%. Oxygen saturation on nasal cannula- - 98% (discussed with aide). HEENT: Normocephalic, atraumatic. No JVD. CARDIOVASCULAR: Positive S1, S2. No S3. LUNGS: Decreased breath sounds at the bases. No rhonchi. No wheezing. EXTREMITIES: The patient is status post left hip surgery. There is minimal edema in the lower extremities. Calves are nontender to palpation. There is no peripheral cyanosis. GASTROINTESTINAL: Abdomen is soft, nontender, nondistended. Bowel sounds are positive. SKIN: No acute rash. NEUROLOGIC: Limited at the present time. IMPRESSION: 1. Left hip fracture,status post repair. 2. Status post fall at home. 3. Mild oxygen desaturation. 4. Minimal atelectasis -- right base. 5. Low grade temperatures -- resolved. PLAN: The patient appears very comfortable this morning. She is not short of breath at rest. She states she is feeling much better overall. Oxygen saturation on nasal cannula is now 98%. I will continue with the current nebulizer treatments and supplemental oxygen for now. As above, the temperatures have now resolved. Procalcitonin done yesterday is negative. Input by infectious disease (Dr. Mars) is noted. The patient will continue her incentive spirometer as much as possible--discussed with her at length. Additional evaluation and treatment will be as per orthopedics. I will discuss the above with the attending physician. Christiano Candelario MD cc: [id number] TT: 10/01/2016 09:43:06 Confirmation # [id number] Dictation # [id number] en MTDD
[2016-10-01] MEDS: Pantoprazole 40 mg EC Tab PO SCH (09:49)
[2016-10-01] MEDS: BENICAR PO SCH (09:49)
[2016-10-01 09:59] VITALS: BP 165/85; PULSE 96; TEMP 98.5
--- NOTE | 2016-10-01 14:50 | RAD ---
PROCEDURE: Fluoroscopy up to 1 hr. HISTORY: ORIF LT HIP COMPARISON: None TECHNIQUE: Standard FINDINGS: Submitted images from the current procedure: 9.0 IMPRESSION: Less than 1 hr fluoroscopic time utilized during performance of the procedure.
--- NOTE | 2016-10-01 16:03 | CP.PCM.PN ---
Subjective - Date & Time of Evaluation Date of Evaluation: 10/01/16 Time of Evaluation: 11:35 - Subjective Subjective: Comfortable in bed, no fevers overnight, no dysuria, no cough, no SOB, no diarrhea. Objective - Vital Signs/Intake and Output Vital Signs (last 24 hours): Temp Pulse Resp BP Pulse Ox 98.5 F 96 H 20 165/85 H 99 10/01/16 09:45 10/01/16 09:45 10/01/16 09:24 10/01/16 09:45 10/01/16 09:24 Intake and Output: 10/01/16 10/01/16 06:59 18:59 Intake Total 1320 420 Output Total 1300 Balance 20 420 - Medications Medications: Current Medications Acetaminophen (Tylenol 325mg Tab) 650 mg PO Q4H PRN PRN Reason: Fever >100.4 F Last Admin: 10/01/16 09:55 Dose: 650 mg Albuterol/Ipratropium (Duoneb 3 Mg/0.5 Mg (3 Ml) Ud) 3 ml IH BIDRESP [facility] Last Admin: 10/01/16 07:39 Dose: 3 ml Amlodipine Besylate (Norvasc) 10 mg PO DAILY [facility] Last Admin: 10/01/16 09:49 Dose: Not Given Docusate Sodium (Colace) 100 mg PO BID [facility] Last Admin: 10/01/16 09:48 Dose: 100 mg Heparin Sodium (Porcine) (Heparin) 5,000 units SC Q12 [facility] PRN Reason: Protocol Last Admin: 10/01/16 09:49 Dose: 5,000 units Home Med (Home Med) 1 unit PO BID [facility] Last Admin: 10/01/16 09:49 Dose: 1 unit Hydromorphone HCl (Dilaudid) 1 mg IVP Q3H PRN PRN Reason: Pain, severe (8-10) Last Admin: 10/01/16 05:15 Dose: 1 mg Morphine Sulfate (Morphine) 2 mg IM Q4H PRN PRN Reason: Pain, moderate (4-7) Pantoprazole Sodium (Protonix Ec Tab) 40 mg PO ACB [facility] Last Admin: 10/01/16 09:49 Dose: 40 mg Paroxetine HCl (Paxil) 10 mg PO DAILY [facility] Last Admin: 10/01/16 09:49 Dose: 10 mg - Labs Labs: 10/01/16 07:50 09/29/16 07:30 PT 11.4 Seconds (9.9-11.8) 09/27/16 16:00 INR 1.06 (0.93-1.08) 09/27/16 16:00 APTT 25.0 Seconds (23.7-30.8) 09/27/16 16:00 - Constitutional Appears: Non-toxic, No Acute Distress - Head Exam Head Exam: NORMAL INSPECTION - Neck Exam Neck Exam: absent: Lymphadenopathy, Meningismus - Respiratory Exam Respiratory Exam: Decreased Breath Sounds - Cardiovascular Exam Cardiovascular Exam: +S1, +S2 - GI/Abdominal Exam GI & Abdominal Exam: Soft. absent: Tenderness Assessment and Plan - Assessment and Plan (Free Text) Plan: Assessment Systemic Inflammatory Response Syndrome (fever, leukocytosis), consider secondary to acute stressful event (hip fracture) as well as atelectasis in the lungs; no evidence of sepsis Left hip fracture S/P ORIF today HTN anxiety disorder obesity with BMI 31 Plan blood and urine cx are negative; CXR only showed atelectasis, PCT is <0.05 - will observe off antibiotics and continue to ttrend WBC count Will continue to follow clinically
== END 2016-10-01 17:35 | DRG 480 ==
LOC: ED 14:33 → ERH 18:03 → 5RSO 18:47
PROVIDERS: ADMIT Internal Medicine Nephrology; ATTEND Internal Medicine Nephrology
PROC: 0QS704Z Reposition Left Upper Femur with Internal Fixation Device, Open Approach (ICD-10-PCS; principal; 2016-09-30 09:00)
DX: S72.142A Displaced intertrochanteric fracture of left femur, initial encounter for closed fracture (principal); J18.9 Pneumonia, unspecified organism; J98.11 Atelectasis; I10 Essential (primary) hypertension; F41.9 Anxiety disorder, unspecified; E78.5 Hyperlipidemia, unspecified; M75.51 Bursitis of right shoulder; K59.00 Constipation, unspecified; Y95 Nosocomial condition; R09.02 Hypoxemia; E66.9 Obesity, unspecified; W18.09XA Striking against other object with subsequent fall, initial encounter; Y93.01 Activity, walking, marching and hiking; Y92.011 Dining room of single-family (private) house as the place of occurrence of the external cause; Y99.8 Other external cause status; Z68.31 Body mass index [BMI] 31.0-31.9, adult